=== PATIENT | male | born 1980 | race American Indian/Alaskan Native ===

== ENCOUNTER 2016-08-14 22:46 | Inpatient (IN) | payer MEDICARE, MEDICAID ==
--- NOTE | 2016-08-14 23:12 | C.PDOC ---
History Of Present Illness A 36 y/o M brought in by EMS found at [facility] talking to self. Admits to drinking ETOH, suicidal, and homicidal ideation. Denies any physical complaints. Time Seen by Provider: 08/14/16 23:04 Chief Complaint (Nursing): Psychiatric Evaluation History Per: Patient History/Exam Limitations: no limitations Onset/Duration Of Symptoms: Hrs Current Symptoms Are (Timing): Still Present Suicide/Self Injury Attempted (Context): None Modifying Factor(s): Alcohol Severity: Mild Associated Symptoms: Suicidal Thoughts, Other (Homicidal ideation) Involuntary Hold By: None Recent travel outside of the [place]: No Additional History Per: Patient Past Medical History Reviewed: Historical Data, Nursing Documentation, Vital Signs Vital Signs: Last Vital Signs Temp 98 F 08/14/16 22:49 Pulse 62 08/14/16 22:49 Resp 16 08/14/16 22:49 BP 115/78 08/14/16 22:49 Pulse Ox 98 08/14/16 23:13 - Medical History PMH: Anxiety, Depression Family History: States: Unknown Family Hx - Social History Hx Alcohol Use: Yes Hx Substance Use: No - Immunization History Hx Tetanus Toxoid Vaccination: No Hx Influenza Vaccination: No Hx Pneumococcal Vaccination: No Review Of Systems Except As Marked, All Systems Reviewed And Found Negative. Constitutional: Positive for: Other (ETOH intoxication). Negative for: Fever, Chills Cardiovascular: Negative for: Chest Pain Respiratory: Negative for: Shortness of Breath Gastrointestinal: Negative for: Nausea, Vomiting, Abdominal Pain, Diarrhea Psych: Positive for: Suicidal ideation, Other (Homicidal ideation) Physical Exam - Physical Exam Appears: Non-toxic, No Acute Distress, Other (ETOH intoxication, (+) AOB, coherent, cooperative) Skin: Warm, Dry Head: Atraumatic, Normacephalic Eye(s): bilateral: Normal Inspection Cardiovascular: Rhythm Regular Respiratory: Normal Breath Sounds, No Rales, No Rhonchi, No Wheezing Gastrointestinal/Abdominal: Soft, No Tenderness Neurological/Psych: Oriented x3, Other (no focal deficit) Gait: Steady ED Course And Treatment - Laboratory Results Result Diagrams: 08/14/16 23:10 08/14/16 23:10 Lab Interpretation: Normal (etoh neg, tox + THC) O2 Sat by Pulse Oximetry: 98 (RA) Pulse Ox Interpretation: Normal Reevaluation Time: 23:47 Reassessment Condition: Unchanged Medical Decision Making Medical Decision Making: Impression: A 36 y/o M brought in by EMS found at [facility] talking to self. Admits to drinking, suicidal and homicidal ideation. Plans: -Blood labs -UA alcohol neg, though claims he's been drinking alcohol today. pending Crisis eval. Disposition Doctor Will See Patient In The: Office Counseled Patient/Family Regarding: Studies Performed, Diagnosis - Disposition Disposition Time: 11:55 Condition: GOOD - Clinical Impression Clinical Impression: Schizophrenia, Depression - Scribe Statement The provider has reviewed the documentation as recorded by the Scribe Dez swanson All medical record entries made by the Scribe were at my direction and personally dictated by me. I have reviewed the chart and agree that the record accurately reflects my personal performance of the history, physical exam, medical decision making, and the department course for this patient. I have also personally directed, reviewed, and agree with the discharge instructions and disposition. Physician Patient Turnover Patient Signed Over To: Pankaj Mirza Handoff Comments: please dispo per Crisis Eval
[2016-08-14 23:13] LABS: BASO # 0.1 K/uL (0.0-0.2); BASO % 1.1 % (0.0-2.0); EOS # 0.1 K/uL (0.0-0.7); EOS % 2.2 % (0.0-4.0); HEMOGLOBIN 13.3 g/dL (12.0-18.0); LYMPH # 1.1 K/uL (1.0-4.3); LYMPH % 19.6 % (20.0-40.0); MEAN CELL VOLUME 93.3 fL (80.0-94.0); MEAN CORPUSCULAR HEMOGLOBIN 31.1 pg (27.0-31.0); MEAN CORPUSCULAR HGB CONC 33.3 g/dL (33.0-37.0); MEAN PLATELET VOLUME 7.2 fL (7.2-11.7); MONO # 0.5 K/uL (0.0-0.8); NEUT # 3.7 K/uL (1.8-7.0); NEUT % 68.1 % (50.0-75.0); RBC 4.28 Mil/uL (4.40-5.90); RED CELL DISTRIBUTION WIDTH 13.8 % (11.5-14.5); WHITE BLOOD COUNT 5.4 K/uL (4.8-10.8)
[2016-08-14 23:15] LABS: SQUAMOUS EPITHIAL < 1 /hpf (0-5); URINE BILIRUBIN NEGATIVE (NEGATIVE); URINE BLOOD NEGATIVE (NEGATIVE); URINE CLARITY Clear (Clear); URINE COLOR Yellow (YELLOW); URINE GLUCOSE (UA) NORMAL (Normal); URINE LEUKOCYTE ESTERASE NEG Leu/uL (Negative); URINE NITRATE NEGATIVE (NEGATIVE); URINE PROTEIN NEGATIVE (NEGATIVE)
[2016-08-14 23:21] LABS: ALBUMIN 4.2 g/dL (3.5-5.0)
[2016-08-14 23:24] LABS: ALB/GLOB RATIO 1.4 (1.0-2.1); ALT/SGPT 23 U/L (21-72); AST/SGOT 25 U/L (17-59); BLOOD UREA NITROGEN 22 mg/dL (9-20); GFR AFRICAN-AMERICAN > 60; GFR NON-AFRICAN AMERICAN > 60
[2016-08-14 23:25] LABS: CALCIUM 9.1 mg/dl (8.6-10.4)
[2016-08-14 23:36] LABS: BARBITURATES, UR NEGATIVE (NEGATIVE); BENZODIAZEPINES, UR NEGATIVE (NEGATIVE)
[2016-08-14 23:39] LABS: OPIATES, UR NEGATIVE (NEGATIVE); PHENCYCLIDINE, UR NEGATIVE (NEGATIVE)
[2016-08-15 01:47] VITALS: O2SAT 96
[2016-08-15] MEDS ORDERED: Pneumococcal 23-Valent Vaccine IM ONE (03:16)
--- NOTE | 2016-08-15 12:46 | PCM.PSYCH ---
Initial Psychiatric Evaluation - Initial Psychiatric Evaluation Type of Admission: Voluntary Legal Status: Capacity History of Present Illness and Precipitating Events: Patient was a 36 year old, single, who currently lives with his mother, was transported to [facility] by EMS when found on [address] talking to himself. Patient remained a poor historian. He was superficially cooperative but remained guarded about the details. He remained somewhat disorganized and internally preoccupied and delusional throughout the interview. He reports that soon after his discharge from [facility] 2 weeks ago he relapsed on marijuana and Patt's. Patient reports of abusing 2-5 joints of marijuana and 4 tablets of Patt's on a daily basis. Patient reports of hearing voices and seeing shadows. He remained delusional and paranoid throughout the interview. He appeared disheveled and unkempt. He reports depressed mood and at times feelings of hopelessness and helplessness and anhedonia. He also reports at times thoughts of killing himself. As per the patient he attempted to cut himself multiple times. He reports irritability and agitation but denies any manic symptoms. He denies any other substance abuse. Past medical history None reported Current Medications: Active Medications Generic Name Dose Route Start Last Admin Trade Name Freq PRN Reason Stop Dose Admin Acetaminophen 650 mg 08/15/16 12:34 Tylenol 325mg Tab PO Q6 PRN Pain, Mild (1-3) Benztropine Mesylate 2 mg 08/15/16 12:34 Cogentin PO Q6 PRN Extra Pyramidal Symptoms Dicyclomine HCl 10 mg 08/15/16 12:34 Bentyl PO Q6 PRN Muscle spasm Diphenhydramine HCl 50 mg 08/15/16 12:34 Benadryl PO Q6 PRN Extra Pyramidal Symptoms Haloperidol 5 mg 08/15/16 12:34 Haldol PO Q8 PRN Moderate Agitation Haloperidol 5 mg 08/15/16 22:00 Haldol PO HS REX Hydroxyzine HCl 25 mg 08/15/16 12:35 Atarax PO Q6 PRN Anxiety Ondansetron HCl 4 mg 08/15/16 12:34 Zofran Tab PO Q8H PRN Nausea/Vomiting Paroxetine HCl 10 mg 08/16/16 10:00 Paxil PO DAILY REX Trazodone HCl 50 mg 08/15/16 03:16 Desyrel PO HS PRN Insomnia Past Psychiatric History - Past Psychiatric History Previous Treatment History: Inpatient Pertinent Medical Hx (Current Medical&Sleep Prob, Allergies): Allergies Allergy/AdvReac Type Severity Reaction Status Date / Time No Known Allergies Allergy Verified 08/14/16 22:52 No Known Home Med 08/14/16 Review of Systems - Review of Systems All systems: reviewed and no additional remarkable complaints except - Psychiatric Psychiatric: Anxiety, Depression, Irritability, Paranoia, Suicidal Ideation Mental Status Examination - Personal Presentation Personal Presentation: Looks stated age - Affect Affect: Blunted, Depressed - Motor Activity Motor Activity: Psychomotor Retardation - Reliability in Providing Information Reliability in Providing Information: Poor, due to alteration in thoughts, Poor , due to altered mood - Speech Speech: Disorganized - Mood Mood: Depressed, Anxious - Formal Thought Process Formal Thought Process: Hallucinations, Delusions, Paranoia, Loosening of associations - Hallucinations/Delusions Delusions: Persecution - Obsessions/Compulsions Obsessions: No Compulsions: No - Cognitive Functions Orientation: Person, Place, Situation, Time Sensorium: Alert Attention/Concentration: Attentive Abstract Thinking: [place] Estimate of Intelligence: Below average Judgement: Imparied, as evidence by: Poor judgement, Imparied, as evidence by: Lack of insight into illness - Risk Risk: Suicidal, Diminished functioning - Strength & Assets Inventory Strength & Assets Inventory: Family support DSM 5 DX - DSM 5 DSM 5 Diagnosis: Schizoaffective disorder depressed type Cannabis use disorder severe Hallucination use disorder severe - Recommended/Plan of Treatment Treatment Recommendations and Plan of Treatment: Schizoaffective disorder depressed type CBT Psychoeducation Supportive therapy, group therapy, individual therapy Haldol 5 mg by mouth daily at bedtime Paxil 10 mg by mouth daily Trazodone 50 mg by mouth daily at bedtime Cannabis use disorder severe CBT Psychoeducation Supportive therapy, individual therapy Use [place] for abstinence Hallucination use disorder severe CBT Psychoeducation Supportive therapy, individual therapy Use IN for abstinence - Smoking Cessation Smoking Cessation Initiated: No
--- NOTE | 2016-08-16 13:39 | PCM.PYCHPN ---
Psychiatric Progress Note - Psychiatric Progress Note Patient seen today, length of contact: 15 MIN Patient Chief Complaint: still hearing voices Problems Identified/Issues Discussed: Patient seen and evaluated, chart reviewed and discussed with the nurse. Patient remained disorganized and internally preoccupied. Patient remained isolated, confined and withdrawn. He still reports of hearing voices. Patient still appears paranoid and delusional. He reports depressed mood and feelings of hopelessness and helplessness. He is taking medication and denies any side effects. Supportive therapy and psychoeducation were given. Medication Change: No Medical Record Reviewed: Yes Mental Status Examination - Cognitive Function Orientation: Person, Place, Situation, Time Memory: Intact Attention: Poor Concentration: Poor Association: Loose Fund of Knowledge: Poor - Mood Mood: Depressed, Anxious - Affect Affect: Blunted, Depressed - Speech Speech: Soft - Formal Thought Process Formal Thought Process: Hallucinations, Delusions, Paranoia, Loosening of associations - Suicidal Ideation Suicidal Ideation: No - Homicidal Ideation Homicidal Ideation: No Goal/Treatment Plan - Goal/Treatment Plan Need for Continued Stay: Discharge may exacerbated symptoms, Severe functional impairment Progress Toward Problem(s) and Goals/Treatment Plan: Schizoaffective disorder depressed type CBT Psychoeducation Supportive therapy, group therapy, individual therapy Haldol 5 mg by mouth daily at bedtime Paxil 10 mg by mouth daily Trazodone 50 mg by mouth daily at bedtime Cannabis use disorder severe CBT Psychoeducation Supportive therapy, individual therapy Use [place] for abstinence Hallucination use disorder severe CBT Psychoeducation Supportive therapy, individual therapy Use [place] for abstinence - Smoking Cessation Smoking Cessation Initiated: No
--- NOTE | 2016-08-17 12:13 | PCM.PYCHPN ---
Psychiatric Progress Note - Psychiatric Progress Note Patient seen today, length of contact: 15 MIN Patient Chief Complaint: still hearing voices Problems Identified/Issues Discussed: Patient seen and evaluated, chart reviewed and discussed with the nurse. Staff reports that pt remained isolated, and withdrawn. He remained disorganized and internally preoccupied. He is not attending any groups or meetings and remained confined to his room. He still reports of hearing voices. He reports depressed mood and feelings of hopelessness and helplessness. He is taking medication and denies any side effects. Supportive therapy and psychoeducation were given. Medication Change: Yes (incrase haldol, increase paxil) Medical Record Reviewed: Yes Mental Status Examination - Cognitive Function Orientation: Person, Place, Situation, Time Memory: Intact Attention: Poor Concentration: Poor Association: Loose Fund of Knowledge: Poor - Mood Mood: Depressed, Anxious - Affect Affect: Blunted, Depressed - Speech Speech: Soft - Formal Thought Process Formal Thought Process: Hallucinations, Delusions, Paranoia, Loosening of associations - Suicidal Ideation Suicidal Ideation: No - Homicidal Ideation Homicidal Ideation: No Goal/Treatment Plan - Goal/Treatment Plan Need for Continued Stay: Discharge may exacerbated symptoms, Severe functional impairment Progress Toward Problem(s) and Goals/Treatment Plan: Schizoaffective disorder depressed type CBT Psychoeducation Supportive therapy, group therapy, individual therapy Haldol 5 mg by mouth BID Cogentin 1 mg PO BID Paxil 20 mg by mouth daily Trazodone 50 mg by mouth daily at bedtime Cannabis use disorder severe CBT Psychoeducation Supportive therapy, individual therapy Use [place] for abstinence Hallucination use disorder severe CBT Psychoeducation Supportive therapy, individual therapy Use MD for abstinence
--- NOTE | 2016-08-18 17:28 | PCM.PYCHPN ---
Psychiatric Progress Note - Psychiatric Progress Note Patient seen today, length of contact: 15 MIN Patient Chief Complaint: "I need to leave early Saturday or tomorrow" Problems Identified/Issues Discussed: The pt is seen, chart reviewed, case discussed with staff. Support given, CBT and IA used briefly No new symptoms reported, improving slowly and needs some more time No SEs from medications, risks discussed. After care discussed, but he is vague and unmotivated, fixated on leaving early. He used to be asleep all day and now he's up and demanding Medication Change: No Medical Record Reviewed: Yes Mental Status Examination - Cognitive Function Orientation: Person, Place, Situation, Time Memory: Intact Attention: Poor Concentration: Poor Association: Loose Fund of Knowledge: Poor - Mood Mood: Depressed, Anxious - Affect Affect: Blunted, Depressed - Speech Speech: Soft - Formal Thought Process Formal Thought Process: Hallucinations, Delusions, Paranoia, Loosening of associations - Suicidal Ideation Suicidal Ideation: No - Homicidal Ideation Homicidal Ideation: No Goal/Treatment Plan - Goal/Treatment Plan Need for Continued Stay: Discharge may exacerbated symptoms, Severe functional impairment Progress Toward Problem(s) and Goals/Treatment Plan: Continue medications Support and psychoeducation daily Attend groups and activities daily After care planning by SOPHIE
--- NOTE | 2016-08-19 16:36 | PCM.PYCHPN ---
Psychiatric Progress Note - Psychiatric Progress Note Patient seen today, length of contact: 15 MIN Patient Chief Complaint: I'm better. Can go home today. Problems Identified/Issues Discussed: Patient seen. Chart reviewed. Case discussed with the staff. Issues related to illness and treatment were discussed with the patient. Patient reported compliant with treatment with no adverse affects. Tolerating treatment very well. Staff reported that patient is refusing medication since his admission. Patient reported feeling better and is requesting discharge from the hospital. At the time of evaluation, patient was awake alert oriented 3, had no delusions , no auditory visual hallucinations, no suicidal ideations or homicidal ideations. Medical Problems: None reported Diagnostic Results: Reviewed DSM 5 Symptoms Update: Improving with treatment Medication Change: No Medical Record Reviewed: Yes Mental Status Examination - Cognitive Function Orientation: Person, Place, Situation, Time Memory: Intact Attention: WNL Concentration: WNL Association: WNL Fund of Knowledge: [facility] Decription of patient's judgement and insights: Fair - Mood Mood: Neutral - Affect Affect: Flat - Speech Speech: Soft - Formal Thought Process Formal Thought Process: No Impairment - Suicidal Ideation Suicidal Ideation: No - Homicidal Ideation Homicidal Ideation: No Goal/Treatment Plan - Goal/Treatment Plan Need for Continued Stay: Remain at risks for inpatient hospitalization, Discharge may exacerbated symptoms, Severe functional impairment Progress Toward Problem(s) and Goals/Treatment Plan: Patient education Supportive therapy Continue treatment as before Estimated Date of D/C: 08/20/16 - Smoking Cessation Smoking Cessation Initiated: No
[2016-08-20 09:35] VITALS: TEMP 98
[2016-08-20 09:36] VITALS: BP 101/65; PULSE 52; RESP 18
--- NOTE | 2016-08-20 09:37 | PCM.PYCHDC ---
Mental Status Examination - Mental Status Examination Orientation: Person, Place, Situation, Time Memory: Intact Mood: Neutral Affect: Constricted Speech: Soft Attention: WNL Concentration: WNL Association: WNL Fund of Knowledge: WNL Formal Thought Process: No Impairment Description of patient's judgement and insight: good, fair Psychotic Thoughts and Behaviors: denies any AVH Suicidal Ideation: No Current Homicidal Ideation?: No Discharge Summary - Discharge Note Reason for Hospitalization: Patient was a 36 year old, single, who currently lives with his mother, was transported to [facility] by EMS when found on [address] talking to himself. Patient remained a poor historian. He was superficially cooperative but remained guarded about the details. He remained somewhat disorganized and internally preoccupied and delusional throughout the interview. He reports that soon after his discharge from [facility] 2 weeks ago he relapsed on marijuana and Patt's. Patient reports of abusing 2-5 joints of marijuana and 4 tablets of Patt's on a daily basis. Patient reports of hearing voices and seeing shadows. He remained delusional and paranoid throughout the interview. He appeared disheveled and unkempt. He reports depressed mood and at times feelings of hopelessness and helplessness and anhedonia. He also reports at times thoughts of killing himself. As per the patient he attempted to cut himself multiple times. He reports irritability and agitation but denies any manic symptoms. He denies any other substance abuse. Consultations:: List each consultation separately and include: 1. Reason for request. 2. Findings. 3. Follow-up Summary of Hospital Course include:: 1. Description of specific treatment plan utilized for patients during their course of treatmen. 2. Summarize the time- course for resolution of acute symptoms and/or regressed behaviors. 3. Describe issues identified and worked on during hospitalization. 4. Describe medication utilized. 5. Describe medical problems identified and treated. 6. Reassessment of suicide risk Summary of Hospital Course: During the course of his stay, patient (pt) started progressively improving and he no longer remained irritable, depressed, suicidal and paranoid. His mood and paranoia were improved and he started attending groups and meetings and started socializing. Patient denied any feelings of hopelessness, helplessness, and worthlessness, denied any problem with the sleep or appetite, denied suicidal ideation or homicidal ideation. Pt denied any auditory or visual hallucinations. Some changes were made in his current medications and patient was discharged on following medications. He tolerated these medications very well and denied any side effects. He was discharged with a plan to follow up with IOP. - Final Diagnosis (DSM 5) Condition upon Discharge: FAIR DSM 5: Schizoaffective disorder depressed type Cannabis use disorder severe Hallucination use disorder severe Disposition: HOME/ ROUTINE Follow-up Treatment Plan: Education: Pt was educated and counseled about the risks and benefits of taking and not taking medications. Pt was educated and counseled about the risks of drinking and abusing drugs. Pt was educated and counseled to go to the ER or call 911 if pt develop suicidal ideation or homicidal ideation, worsening of symptoms or severe side effects of the meds. Prescriptions/Medication Reconciliation: Benztropine [Cogentin] 1 mg PO BID #60 tab Haloperidol [Haldol] 10 mg PO HS #30 tab Haloperidol [Haldol] 5 mg PO DAILY #30 tab PARoxetine [Paxil] 20 mg PO DAILY #30 tab traZODone [Desyrel] 50 mg PO HS PRN #30 tab PRN Reason: Insomnia - Smoking Cessation Smoking Cessation Medication prescribed: No - Antipsychotic Medications Pt discharged on 2 or more routine antipsychotic medications: No
== END 2016-08-20 09:50 | disposition home or self-care (01) | DRG 885 ==
LOC: C.ER 22:46 → C.5E 08-15 01:29
PROVIDERS: ADMIT Psychiatry & Neurology Psychiatry; ATTEND Psychiatry & Neurology Psychiatry
PROC: GZ3ZZZZ Medication Management (ICD-10-PCS; principal; 2016-08-15)
PROC: HZ59ZZZ Individual Psychotherapy for Substance Abuse Treatment, Supportive (ICD-10-PCS; 2016-08-15)
PROC: HZ99ZZZ Pharmacotherapy for Substance Abuse Treatment, Other Replacement Medication (ICD-10-PCS; 2016-08-15)
PROC: GZHZZZZ Group Psychotherapy (ICD-10-PCS; 2016-08-15)
PROC: GZ56ZZZ Individual Psychotherapy, Supportive (ICD-10-PCS; 2016-08-15)
DX: F25.1 Schizoaffective disorder, depressive type (principal); F16.10 Hallucinogen abuse, uncomplicated; F12.10 Cannabis abuse, uncomplicated